=== PATIENT | female | born 1955 | race Two or more races ===

== ENCOUNTER 2019-06-20 08:17 | Day surgery (SDC) | payer OTHER | END 2019-06-20 13:25 | disposition home or self-care (01) | LOC: CIR.AMB 08:17 → AMB-ENDOS 08:17 → CIR.AMB 13:15 → AMB-ENDOS 13:25 | DX: K31.89 Other diseases of stomach and duodenum (principal); K29.40 Chronic atrophic gastritis without bleeding; K64.1 Second degree hemorrhoids ==